=== PATIENT | female | born 2000 | race Caucasian/White ===

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

== ENCOUNTER 2022-02-09 10:01 | Emergency (ER) | payer OTHER ==
[~2022-02-09 10:01] MED LIST changes: +KEFLEX CAP 250250 MG PO
[2022-02-09 10:30] LABS: HEMOGLOBIN 13.2 gm/dl (12.3-15.3); RED BLOOD COUNT 4.35 M/UL (4.00-5.10); WHITE BLOOD COUNT 11.2 K/UL (4.5-11.0)
[2022-02-09 10:53] LABS: BUN/CREATININE RATIO 15 (0-10)
[2022-02-09] MEDS ORDERED: PHENERGAN 50 MG50 MG PR (13:06)
== END 2022-02-09 13:25 | disposition home or self-care (01) ==
LOC: ER1 10:01
PROVIDERS: Physician Assistant
DX: O21.0 Mild hyperemesis gravidarum (principal); Z3A.08 8 weeks gestation of pregnancy
CPT/HCPCS: 80053; 81001; 84702; 85025; 87086; 96374; 99284; J2550

== ENCOUNTER → 2022-06-12 | Outpatient (CLI) | payer OTHER ==
[~2022-06-12] MED LIST changes: +PHENERGAN 50 MG50 MG PR
== END ==
LOC: GENOP 13:03
DX: R31.9 Hematuria, unspecified (principal)
CPT/HCPCS: 81001; G0463